=== PATIENT | male | born 1950 | race Caucasian/White ===

== ENCOUNTER 2020-01-04 13:42 | Outpatient (CLI) | payer MEDICARE, OTHER ==
[2020-01-04 14:28] LABS: ALBUMIN 4.3 g/dL (3.2-5.5); ALBUMIN/GLOBULIN RATIO 1.5 (1.0-2.2); BILIRUBIN,TOTAL 1.3 mg/dL (0.2-1.0); CALCIUM 10.3 mg/dL (8.5-10.3); CREATININE 1.4 mg/dL (0.6-1.2); TOTAL PROTEIN 7.1 g/dL (6.7-8.2)
== END 2020-01-04 13:43 | disposition home or self-care (01) ==
LOC: LAB 13:42
PROVIDERS: ATTEND Internal Medicine Hematology & Oncology
DX: C61 Malignant neoplasm of prostate (principal)
CPT/HCPCS: 36415; 80053

== ENCOUNTER 2020-01-29 14:03 | Outpatient (CLI) | payer MEDICARE, OTHER ==
[2020-01-29 14:27] LABS: ALBUMIN 4.6 g/dL (3.2-5.5); ALBUMIN/GLOBULIN RATIO 1.6 (1.0-2.2); BILIRUBIN,TOTAL 1.2 mg/dL (0.2-1.0); CREATININE 1.4 mg/dL (0.6-1.2); TOTAL PROTEIN 7.5 g/dL (6.7-8.2)
== END 2020-01-29 14:04 | disposition home or self-care (01) ==
LOC: LAB 14:03
PROVIDERS: ATTEND Internal Medicine Hematology & Oncology
DX: C61 Malignant neoplasm of prostate (principal)
CPT/HCPCS: 36415; 80053

== ENCOUNTER 2020-03-03 08:00 | Outpatient (CLI) | payer MEDICARE, OTHER ==
[2020-03-03 13:47] LABS: ALBUMIN 4.4 g/dL (3.2-5.5); ALBUMIN/GLOBULIN RATIO 1.6 (1.0-2.2); BILIRUBIN,TOTAL 0.9 mg/dL (0.2-1.0); CALCIUM 10.3 mg/dL (8.5-10.3); CREATININE 1.4 mg/dL (0.6-1.2); TOTAL PROTEIN 7.1 g/dL (6.7-8.2)
== END 2020-03-03 23:59 | disposition home or self-care (01) ==
LOC: LAB.R 08:00
PROVIDERS: ATTEND Internal Medicine Hematology & Oncology
DX: C61 Malignant neoplasm of prostate (principal)
CPT/HCPCS: 80053

== ENCOUNTER 2020-04-28 16:25 | Outpatient (CLI) | payer MEDICARE, OTHER | END 2020-04-28 16:26 | disposition home or self-care (01) | LOC: COV 16:25 | PROVIDERS: ATTEND Orthopaedic Surgery | DX: Z01.812 Encounter for preprocedural laboratory examination (principal); Z20.822 Contact with and (suspected) exposure to COVID-19 ==

== ENCOUNTER 2020-05-05 15:00 | Outpatient (CLI) | payer MEDICARE, OTHER ==
[2020-05-05 18:27] LABS: INR 1.6 (0.8-1.2); PT - PROTHROMBIN TIME 17.5 secs (9.9-12.6)
== END 2020-05-05 15:01 | disposition home or self-care (01) ==
LOC: LAB.N 15:00
PROVIDERS: ATTEND Family Medicine
DX: Z78.9 Other specified health status (principal); Z51.81 Encounter for therapeutic drug level monitoring; Z79.01 Long term (current) use of anticoagulants
CPT/HCPCS: 36415; 85610

== ENCOUNTER 2020-05-08 14:23 | Outpatient (CLI) | payer MEDICARE, OTHER | END 2020-05-08 14:24 | disposition home or self-care (01) | LOC: LAB 14:23 | DX: Z51.81 Encounter for therapeutic drug level monitoring (principal); Z78.9 Other specified health status; Z79.01 Long term (current) use of anticoagulants | CPT/HCPCS: 85610 ==

== ENCOUNTER 2020-05-12 14:22 | Outpatient (CLI) | payer MEDICARE, OTHER | END 2020-05-12 14:23 | disposition home or self-care (01) | LOC: LAB 14:22 | DX: Z78.9 Other specified health status (principal) | CPT/HCPCS: 85610 ==

== ENCOUNTER 2020-05-16 15:19 | Outpatient (CLI) | payer MEDICARE, OTHER | END 2020-05-16 15:20 | disposition home or self-care (01) | LOC: LAB 15:19 | DX: Z78.9 Other specified health status (principal); Z79.01 Long term (current) use of anticoagulants | CPT/HCPCS: 85610 ==

== ENCOUNTER 2020-05-19 14:17 | Outpatient (CLI) | payer MEDICARE, OTHER | END 2020-05-19 14:18 | disposition home or self-care (01) | LOC: LAB 14:17 | DX: Z78.9 Other specified health status (principal) | CPT/HCPCS: 85610 ==

== ENCOUNTER 2020-05-22 08:00 | Outpatient (CLI) | payer MEDICARE, OTHER | END 2020-05-22 23:59 | disposition home or self-care (01) | LOC: LAB 08:00 | DX: Z78.9 Other specified health status (principal) | CPT/HCPCS: 36415; 80053; 85610 ==

== ENCOUNTER 2020-05-26 14:16 | Outpatient (CLI) | payer MEDICARE, OTHER | END 2020-05-26 14:17 | disposition home or self-care (01) | LOC: LAB 14:16 | DX: Z78.9 Other specified health status (principal) | CPT/HCPCS: 85610 ==

== ENCOUNTER 2020-05-29 08:00 | Outpatient (CLI) | payer MEDICARE, OTHER | END 2020-05-29 23:59 | disposition home or self-care (01) | LOC: LAB 08:00 | DX: Z78.9 Other specified health status (principal) | CPT/HCPCS: 85610 ==

== ENCOUNTER 2020-10-31 15:06 | Outpatient (CLI) | payer MEDICARE, OTHER | END 2020-10-31 15:07 | disposition home or self-care (01) | LOC: COV 15:06 | PROVIDERS: ATTEND Internal Medicine Pulmonary Disease | DX: Z01.812 Encounter for preprocedural laboratory examination (principal); J44.9 Chronic obstructive pulmonary disease, unspecified; Z20.822 Contact with and (suspected) exposure to COVID-19 ==

== ENCOUNTER 2021-03-19 19:13 | Emergency (ER) | payer MEDICARE, OTHER ==
[2021-03-19 19:42] VITALS: BP 151/88
[2021-03-19 20:13] LABS: BASOPHILS # (AUTO) 0.1 10^3/uL (0.0-0.1); BASOPHILS % (AUTO) 0.8 %; EOSINOPHILS # (AUTO) 0.1 10^3/uL (0.0-0.7); EOSINOPHILS % (AUTO) 1.1 %; HCT - HEMATOCRIT 37.7 % (42.0-52.0); HGB - HEMOGLOBIN 12.8 g/dL (14.0-18.0); LYMPHOCYTES # (AUTO) 1.1 10^3/uL (1.5-3.5); LYMPHOCYTES % (AUTO) 15.1 %; MEAN CORPUSCULAR HEMOGLOBIN 31.6 pg (27.0-31.0); MEAN CORPUSCULAR VOLUME 93.1 fL (80.0-94.0); MEAN PLATELET VOLUME 10.8 fL (7.4-11.4); MONOCYTES # (AUTO) 0.6 10^3/uL (0.0-1.0); MONOCYTES % (AUTO) 8.5 %; NEUTROPHILS # (AUTO) 5.6 10^3/uL (1.5-6.6); NEUTROPHILS % (AUTO) 74.2 %; PLT - PLATELET COUNT 152 10^3/uL (130-450); RED BLOOD COUNT 4.05 10^6/uL (4.70-6.10); RED CELL DISTRIBUTION WIDTH 12.7 % (12.0-15.0); WHITE BLOOD COUNT 7.6 x10^3/uL (4.8-10.8)
[2021-03-19 20:26] LABS: ALBUMIN 4.2 g/dL (3.2-5.5); ALBUMIN/GLOBULIN RATIO 1.6 (1.0-2.2); BILIRUBIN,TOTAL 1.4 mg/dL (0.2-1.0); CREATININE 1.6 mg/dL (0.6-1.2); POTASSIUM 4.7 mmol/L (3.5-5.0); TOTAL PROTEIN 6.9 g/dL (6.7-8.2)
--- NOTE | 2021-03-19 22:17 | XRAY Report ---
PROCEDURE: Knee 3 View LT INDICATIONS: pain; ? effusion TECHNIQUE: 3 views of the left knee(s) were acquired. COMPARISON: None. FINDINGS: Bones: No fractures or dislocations. No suspicious bony lesions. Knee arthroplasty is present. Richard dware is intact. Soft tissues: Mild joint effusion. No suspicious soft tissue calcifications. IMPRESSION: Mild effusion. No visualized acute fracture or dislocation. However, occult injury canno t be excluded. Recommend short interval imaging follow-up in 7-10 days as clinically indicated for ad ditional evaluation. Reviewed by: Fang Bernstein MD on 03/19/2021 10:16 PM PST Approved by: Fang Bernstein MD on 03/19/2021 10:16 PM PST Station ID: [id number]
== END 2021-03-19 22:00 | disposition left against medical advice (07) ==
LOC: ED 19:13
DX: Z53.29 Procedure and treatment not carried out because of patient's decision for other reasons (principal)
CPT/HCPCS: 36415; 80053; 83605; 83690; 85025; 85651; 86140; 87040

== ENCOUNTER 2021-12-16 15:21 | Outpatient (CLI) | payer MEDICARE, OTHER ==
--- NOTE | 2021-12-16 20:11 | XRAY Report ---
PROCEDURE: Hand 3 View RT INDICATIONS: OA OF 1ST [facility] JOINT TECHNIQUE: 3 views of the hand acquired. COMPARISON: None. FINDINGS: Bones: No acute fractures or dislocations. No suspicious bony lesions. There is mild volar subluxa tion of the second and third metacarpophalangeal joints. Postsurgical changes are seen at the radial aspect of the third metacarpophalangeal joint severe joint space narrowing is seen at the first carpo metacarpal joint with subchondral sclerosis. Focal subchondral lucency is seen at the first metacarpa l base that may represent subchondral cystic changes or chronic osseous erosion. Severe degenerative changes are seen in the triscaphe joint. The first metacarpal phalangeal joint is mildly hyperextende d. There are mild scattered degenerative changes at the interphalangeal joints of the fingers. Soft tissues: No suspicious soft tissue calcifications. IMPRESSION: 1.Severe arthritic changes at the first carpometacarpal joint with juxta articular lucency is most li hayes related to primary osteoarthrosis, but an inflammatory arthritis is not entirely excluded. Sever e degenerative changes also seen at the triscaphe joint. 2.Mild volar subluxation of the second and third metacarpophalangeal joints. Mild hyperextension of t he first metacarpophalangeal joint is noted. Reviewed by: Magan Smith MD on 12/16/2021 8:10 PM PDT Approved by: Magan Smith MD on 12/16/2021 8:10 PM PDT Station ID: [id number]
== END 2021-12-16 15:22 | disposition home or self-care (01) ==
LOC: DI.N 15:21
PROVIDERS: ATTEND Family Medicine
DX: M18.11 Unilateral primary osteoarthritis of first carpometacarpal joint, right hand (principal); M19.031 Primary osteoarthritis, right wrist; S63.210A Subluxation of metacarpophalangeal joint of right index finger, initial encounter; S63.212A Subluxation of metacarpophalangeal joint of right middle finger, initial encounter

== ENCOUNTER 2021-12-17 16:32 | Outpatient (CLI) | payer MEDICARE, OTHER ==
--- NOTE | 2021-12-18 16:30 | XRAY Report ---
PROCEDURE: Knee 4 View RT INDICATIONS: CHRONIC PAIN OF RIGHT KNEE TECHNIQUE: 4 views of the right knee(s) were acquired. COMPARISON: None. FINDINGS: Bones: No fractures or dislocations. Mild to moderate medial femoral tibial compartment osteoarthri tic changes are seen with joint space narrowing, subchondral sclerosis and small marginal osteophyte formation. No patella subluxation. No suspicious bony lesions. Soft tissues: Moderate suprapatellar joint effusion is seen. No suspicious soft tissue calcificatio ns. IMPRESSION: Mild to moderate medial femoral tibial compartment osteoarthritis. No fracture or disloc ation. Moderate suprapatellar joint effusion. Reviewed by: Jose Alejandro Gallo MD on 12/18/2021 4:28 PM PDT Approved by: Jose Alejandro Gallo MD on 12/18/2021 4:28 PM PDT Station ID: [id number]
== END 2021-12-17 16:33 | disposition home or self-care (01) ==
LOC: DI 16:32
PROVIDERS: ATTEND Orthopaedic Surgery
DX: M17.11 Unilateral primary osteoarthritis, right knee (principal); M25.461 Effusion, right knee

== ENCOUNTER 2022-02-25 12:42 | Outpatient (CLI) | payer MEDICARE, OTHER ==
[2022-02-25 17:45] LABS: BASOPHILS # (AUTO) 0.1 10^3/uL (0.0-0.1); EOSINOPHILS # (AUTO) 0.1 10^3/uL (0.0-0.7); HCT - HEMATOCRIT 40.1 % (42.0-52.0); HGB - HEMOGLOBIN 13.2 g/dL (14.0-18.0); LYMPHOCYTES # (AUTO) 1.6 10^3/uL (1.5-3.5); LYMPHOCYTES % (AUTO) 32.5 %; MEAN CORPUSCULAR HEMOGLOBIN 30.3 pg (27.0-31.0); MEAN CORPUSCULAR HGB CONC 32.9 g/dL (32.0-36.0); MEAN PLATELET VOLUME 11.3 fL (7.4-11.4); MONOCYTES # (AUTO) 0.4 10^3/uL (0.0-1.0); MONOCYTES % (AUTO) 8.3 %; NEUTROPHILS # (AUTO) 2.8 10^3/uL (1.5-6.6); NEUTROPHILS % (AUTO) 56.2 %; PLT - PLATELET COUNT 156 10^3/uL (130-450); RED BLOOD COUNT 4.36 10^6/uL (4.70-6.10); RED CELL DISTRIBUTION WIDTH 12.8 % (12.0-15.0)
[2022-02-25 18:01] LABS: ALBUMIN 4.1 g/dL (3.2-5.5); ALBUMIN/GLOBULIN RATIO 1.3 (1.0-2.2); ALKALINE PHOSPHATASE 65 IU/L (42-121); ALT ALANINE AMINOTRANSFERASE 19 IU/L (10-60); AST ASPARTATE AMINOTRANSFERASE 22 IU/L (10-42); BILIRUBIN,TOTAL 0.9 mg/dL (0.2-1.0); BUN - BLOOD UREA NITROGEN 32 mg/dL (6-20); CALCIUM 10.1 mg/dL (8.5-10.3); CARBON DIOXIDE - CO2 26 mmol/L (21-32); CHLORIDE 106 mmol/L (101-111); CHOL/HDL RATIO 2.7 (<5.0); CHOLESTEROL 229 mg/dL; CREATININE 1.3 mg/dL (0.6-1.2); GFR - MDRD 54 (>89); GLUCOSE 111 mg/dL (70-100); HDL CHOLESTEROL 85 mg/dL; LDL CHOLESTEROL,CALCULATED 126 mg/dL; LDL/HDL RATIO 1.5 (<3.6); SODIUM 138 mmol/L (135-145); TOTAL PROTEIN 7.2 g/dL (6.7-8.2); TRIGLYCERIDES 90 mg/dL; VLDL CHOLESTEROL 18 mg/dL
[2022-02-25 18:10] LABS: THYROID STIMULATING HORMONE 1.3 uIU/mL (0.34-5.60)
[2022-02-25 20:30] LABS: ESTIMATED AVERAGE GLUCOSE 123 mg/dL (70-100); HEMOGLOBIN A1c% 5.9 % (4.27-6.07)
== END 2022-02-25 12:43 | disposition home or self-care (01) ==
LOC: LAB.N 12:42
PROVIDERS: ATTEND Family Medicine
DX: M17.11 Unilateral primary osteoarthritis, right knee (principal); G47.30 Sleep apnea, unspecified; D49.7 Neoplasm of unspecified behavior of endocrine glands and other parts of nervous system; R53.83 Other fatigue; R53.81 Other malaise; J45.909 Unspecified asthma, uncomplicated; F32.9 Major depressive disorder, single episode, unspecified; C61 Malignant neoplasm of prostate; R73.9 Hyperglycemia, unspecified
CPT/HCPCS: 36415; 80053; 80061; 83036; 83721; 84153; 84443; 85025

== ENCOUNTER 2022-10-16 14:57 | Outpatient (CLI) | payer MEDICARE, OTHER | END 2022-10-16 14:58 | disposition EMS.NT | LOC: EMS 14:57 | DX: M25.461 Effusion, right knee (principal); V13.4XXA Pedal cycle driver injured in collision with car, pick-up truck or van in traffic accident, initial encounter; Y92.414 Local residential or business street as the place of occurrence of the external cause ==

== ENCOUNTER 2022-11-23 13:44 | Outpatient (CLI) | payer MEDICARE, OTHER ==
--- NOTE | 2022-11-23 14:29 | Sleep Patient Instructions ---
Sleep Center Visit Summary - Patient Visit Information Reason for Visit: Initial consult for evaluation of sleep disordered breathing and other sleep issues. - Patient Instructions Instructions Attached: Sleep Clinic Visit, Sleep Study Additional Instructions: You will be completing a sleep study, either an in-lab polysomnography (PSG) or home sleep study (HST). You will follow-up in the sleep care office after the sleep study is completed to hear the results and talk about therapy, if needed. You will be called by our office staff to schedule this appointment, but you may contact us with any questions. - Clinic Information Contact: [facility] [address] [place] [address] [email or web address] T: [phone]
--- NOTE | 2022-11-23 14:38 | SLEEP CARE CONSULTATION ---
Information from patient questionnaire entered by Jorge Walker. I have reviewed and concur with the information entered by Jorge Walker. This document represents the service I personally performed and the decisions made by me, Aurna Hartley ARNP. History of Present Illness Service Date and Time: 11/23/2022 1344 Reason for Visit: New patient, Previously diagnosed sleep apnea (did not tolerate facial mask; has not used for 15 years) Chief Complaint: reports: Insomnia, Unrefreshed sleep, Fatigue, Frequent awakenings at night Date of Onset: 40YRS Usual bedtime: 1030PM-12AM Time it takes to fall asleep: 30MIN Snores at night: Yes Observed to quit breathing while asleep: Yes Sleeps alone due to snoring: Yes Number of times waking at night: 3-4 Reasons for waking at night: reports: Gasping for air, Pain, Bathroom Toss, Turn, or Twitch while sleeping: Yes Recalls having dreams: Yes Usually gets out of bed at: 730-8AM Feels refreshed in the morning: No Morning headache: No Sleepy or fatigued during the day: Yes Ever fallen asleep while driving: No Takes day naps: Yes (2 times a week for an hour) Dreams during day naps: No Prior sleep studies: Yes (DELIGHT 30 YRS AGO) Additional HPI information: I had the pleasure of seeing ANH MELGAR today regarding the possibility of him having a sleep disorder. His current complaints are fatigue, frequent night awakenings, insomnia and unrefreshed sleep. He was previously diagnosed with sleep apnea but could not tolerate the mask on his face. He was told he was severe. He has not used a CPAP for about 15 years. He was in for a spinal surgery last April and the nurse "pleaded" with him to get checked out because he was setting off all the respiratory alarms when sleeping. He states his fatigue level has "drastically increased" in the last 6 months to a year. He has prostate cancer and is on Lupron. One of the side effects can be fatigue. He talked to his PCP who put him through a lot of tests for fatigue. He uses Ambien to help him go to sleep. He is a light sleeper and if gets awoken he has a hard time falling back to sleep. - Parasomnia Symptoms Ever been unable to move upon waking from sleep: No Walks in sleep: No Talks in sleep: No Ever acted out dreams in sleep: No Ever felt weak in the knees when startled or emotional: No Bothered by creepy, crawly, restless sensations in legs: Yes Problems with memory or concentration: No Subjective Initial [place] Sleepiness Scale score: 6 (11/23/22) Past Medical History Past Medical History: reports: Claustrophobia, Arthritis, Anxiety, Asthma, Depression, Other (PROSTATE CANCER) Social History The patient's occupation is a RE. Patient is Single and lives in . Have you smoked in the past 12 months: No Alcohol use: Yes Alcohol amount and frequency: 1 DRINK X WEEKLY Caffeine use: Yes Caffeine amount and frequency: 2 CUPS AM Family History Family history of sleep disordered breathing: Yes Family Hx Sleep Apnea: Sibling: Snoring, Sleep apnea - Treated Allergies and Home Medications Known drug allergies: No Drug allergies reviewed: Yes Home medication list reviewed: Yes Allergy and home medication list: Allergies No Known Drug Allergies Allergy (Verified 11/22/22 10:17) Home Medications Medication Instructions Recorded Confirmed Last Taken Type Albuterol Sulfate See Rx Instructions .ROUTE .COMPLEX 11/23/22 11/23/22 Unknown History Alprazolam [Xanax] See Rx Instructions .ROUTE .COMPLEX 11/23/22 11/23/22 Unknown History Budesonide/Formoterol Fumarate See Rx Instructions .ROUTE .COMPLEX 11/23/22 11/23/22 Unknown History [Symbicort 160-4.5 Mcg Inhaler] FLUoxetine [PROzac] See Rx Instructions .ROUTE .COMPLEX 11/23/22 11/23/22 Unknown History Gabapentin [Neurontin] See Rx Instructions .ROUTE .COMPLEX 11/23/22 11/23/22 Unknown History Multivitamin See Rx Instructions .ROUTE .COMPLEX 11/23/22 11/23/22 Unknown History Musinex See Rx Instructions .ROUTE .COMPLEX 11/23/22 11/23/22 Unknown History Zolpidem [Ambien] See Rx Instructions .ROUTE .COMPLEX 11/23/22 11/23/22 Unknown History Review of Systems Weight gain over past 5 years: 10 Cardiovascular: denies: high blood pressure Respiratory: reports: shortness of breath, wheeze, chronic cough Gastrointestinal: denies: heartburn Urinary: reports: frequency Neurological: denies: headaches Psychiatric: reports: anxiety, depression, claustrophobia Ear/Nose/Throat: reports: tonsillectomy Endocrine: reports: too hot or cold, unexplained weakness Musculoskeletal: reports: joint pain, joint swelling Physical Exam Vital signs obtained and entered by: JORGE Newberry MA Blood Pressure: 154/76 (RIGHT) Cuff size: wrist Heart Rate: 61 O2 Saturation: 0 Height: 6 ft 1 in Weight: 210 lb 9.6 oz Body Mass Index: 27.8 BMI Classification: Overweight Neck circumference: 18 Mouth and throat: narrow oropharynx Soft palate: long Hard palate: normal Uvula: normal Uvula visualization: 25% Mallampati Class III Tongue: normal in size (geographic tongue) Tonsils: absent bilaterally Neck: normal w/o lymphadenopathy or thyromegaly Heart: regular rate and rhythm Lungs: clear bilaterally Impression and Plan 1. Suspected Obstructive Sleep Apnea-Hypopnea Syndrome, as previously diagnosed and as suggested by a history of loud and irregular snoring, observed cessation of breath while asleep, frequent awakening during the night and unrefreshed sleep. I recommend proceeding to polysomnography to confirm the diagnosis and to assess severity. If the patient has significant sleep disordered breathing, a manual CPAP titration study will also be performed to find the optimal treatment pressure. I informed the patient of what the sleep studies involve and after some discussion, obtained agreement to proceed. The pathophysiology of obstructive sleep apnea-hypopnea syndrome was discussed with the patient and health risks of cardiovascular and cerebrovascular disease if not treated. Risks of drowsy driving discussed in detail and patient advised to avoid long distance driving and to thread puller at the first sign of drowsiness. Patient agreed to plan. * Schedule polysomnography. * Avoid long distance driving or driving when feeling sleepy. * Avoid alcohol, sedative and muscle relaxant around bedtime. * Attempt to lose weight. * Review instructions provided by trained office staff on how to prepare for the sleep study. * Return for follow-up after sleep study completed. Counseling Topics: Weight loss health impact Plan: PSG/HST Visit Type: In Office Time Spent with Patient (minutes): 34 Provider Statement: I spent 100% of the Face to Face Visit with the patient with greater than 50% spent counseling the patient and coordination of care.
[2022-11-23 14:53] VITALS: BP 154/76; O2SAT 0
== END 2022-11-23 13:45 | disposition home or self-care (01) ==
LOC: SC 13:44
PROVIDERS: ATTEND Nurse Practitioner Family
DX: R06.81 Apnea, not elsewhere classified (principal); G47.8 Other sleep disorders; R06.83 Snoring
CPT/HCPCS: 99203; G0463; 99212

== ENCOUNTER 2022-12-28 21:32 | Outpatient (CLI) | payer MEDICARE, OTHER | END 2022-12-28 21:33 | disposition home or self-care (01) | LOC: SC 21:32 | PROVIDERS: ATTEND Nurse Practitioner Family | DX: G47.33 Obstructive sleep apnea (adult) (pediatric) (principal); G47.61 Periodic limb movement disorder; F32.A Depression, unspecified; E66.3 Overweight; Z68.27 Body mass index [BMI] 27.0-27.9, adult | CPT/HCPCS: 95810 ==

== ENCOUNTER 2023-05-31 11:07 | Outpatient (CLI) | payer MEDICARE, OTHER ==
[2023-05-31 11:27] LABS: BASOPHILS % (AUTO) 0.9 %; EOSINOPHILS # (AUTO) 0.1 10^3/uL (0.0-0.7); EOSINOPHILS % (AUTO) 2.2 %; HCT - HEMATOCRIT 40.1 % (42.0-52.0); HGB - HEMOGLOBIN 13.1 g/dL (14.0-18.0); LYMPHOCYTES # (AUTO) 1.5 10^3/uL (1.5-3.5); LYMPHOCYTES % (AUTO) 33.3 %; MEAN CORPUSCULAR HEMOGLOBIN 29.6 pg (27.0-31.0); MEAN CORPUSCULAR HGB CONC 32.7 g/dL (32.0-36.0); MEAN CORPUSCULAR VOLUME 90.7 fL (80.0-94.0); MEAN PLATELET VOLUME 10.4 fL (7.4-11.4); MONOCYTES # (AUTO) 0.4 10^3/uL (0.0-1.0); MONOCYTES % (AUTO) 8.7 %; NEUTROPHILS # (AUTO) 2.4 10^3/uL (1.5-6.6); NEUTROPHILS % (AUTO) 54.7 %; PLT - PLATELET COUNT 165 10^3/uL (130-450); RED BLOOD COUNT 4.42 10^6/uL (4.70-6.10); RED CELL DISTRIBUTION WIDTH 12.8 % (12.0-15.0); WHITE BLOOD COUNT 4.5 x10^3/uL (4.8-10.8)
[2023-05-31 11:42] LABS: CHOL/HDL RATIO 3.1 (<5.0); CHOLESTEROL 234 mg/dL; HDL CHOLESTEROL 75 mg/dL; LDL CHOLESTEROL,CALCULATED 136 mg/dL; LDL/HDL RATIO 1.8 (<3.6); TRIGLYCERIDES 113 mg/dL (48-352); VLDL CHOLESTEROL 23 mg/dL
[2023-05-31 11:43] LABS: ALBUMIN 4.2 g/dL (3.2-5.5); ALBUMIN/GLOBULIN RATIO 1.7 (1.0-2.2); BILIRUBIN,TOTAL 1.2 mg/dL (0.2-1.0); CALCIUM 10.6 mg/dL (8.5-10.3); CREATININE 1.4 mg/dL (0.6-1.3); POTASSIUM 4.4 mmol/L (3.5-4.5); TOTAL PROTEIN 6.7 g/dL (6.4-8.9)
[2023-05-31 11:55] LABS: THYROID STIMULATING HORMONE 2.29 uIU/mL (0.34-5.60)
[2023-05-31 12:29] LABS: ESTIMATED AVERAGE GLUCOSE 114 mg/dL (70-100); HEMOGLOBIN A1c% 5.6 % (4.27-6.07)
== END 2023-05-31 11:08 | disposition home or self-care (01) ==
LOC: LAB 11:07
PROVIDERS: ATTEND Internal Medicine Hematology & Oncology
DX: C61 Malignant neoplasm of prostate (principal); C79.51 Secondary malignant neoplasm of bone; R53.83 Other fatigue; J44.9 Chronic obstructive pulmonary disease, unspecified; B35.1 Tinea unguium; N18.9 Chronic kidney disease, unspecified; R73.9 Hyperglycemia, unspecified; R06.09 Other forms of dyspnea; F41.8 Other specified anxiety disorders; G47.30 Sleep apnea, unspecified
CPT/HCPCS: 36415; 80053; 80061; 83036; 83721; 84153; 84402; 84403; 84443; 85025

== ENCOUNTER 2023-08-05 13:45 | Emergency (ER) | payer MEDICARE, OTHER ==
[2023-08-05 14:20] LABS: BASOPHILS % (AUTO) 0.7 %; EOSINOPHILS # (AUTO) 0.1 10^3/uL (0.0-0.7); EOSINOPHILS % (AUTO) 1.2 %; HCT - HEMATOCRIT 43.2 % (42.0-52.0); LYMPHOCYTES # (AUTO) 1.7 10^3/uL (1.5-3.5); LYMPHOCYTES % (AUTO) 29.7 %; MEAN CORPUSCULAR HEMOGLOBIN 29.4 pg (27.0-31.0); MEAN CORPUSCULAR HGB CONC 32.4 g/dL (32.0-36.0); MEAN CORPUSCULAR VOLUME 90.8 fL (80.0-94.0); MEAN PLATELET VOLUME 10.8 fL (7.4-11.4); MONOCYTES # (AUTO) 0.6 10^3/uL (0.0-1.0); MONOCYTES % (AUTO) 10.4 %; NEUTROPHILS # (AUTO) 3.4 10^3/uL (1.5-6.6); NEUTROPHILS % (AUTO) 57.8 %; PLT - PLATELET COUNT 146 10^3/uL (130-450); RED BLOOD COUNT 4.76 10^6/uL (4.70-6.10); RED CELL DISTRIBUTION WIDTH 12.6 % (12.0-15.0); WHITE BLOOD COUNT 5.8 x10^3/uL (4.8-10.8)
[2023-08-05 14:34] LABS: ALBUMIN 4.3 g/dL (3.2-5.5); ALBUMIN/GLOBULIN RATIO 1.5 (1.0-2.2); CALCIUM 10.6 mg/dL (8.5-10.3); CREATININE 1.7 mg/dL (0.6-1.3); POTASSIUM 4.3 mmol/L (3.5-4.5); TOTAL PROTEIN 7.1 g/dL (6.4-8.9)
[2023-08-05 14:46] LABS: TROPONIN I HIGH SENSITIVITY 25.5 ng/L (2.3-19.7)
--- NOTE | 2023-08-05 14:47 | ED Physician Documentation ---
History of Present Illness - Stated complaint Stated Complaint: COVID +, LOW BLOOD PRESSURE - Chief complaint Chief Complaint: Neuro - Additonal information Additional information: 73-year-old male with history of prostate cancer currently in remission, osteoarthritis, anxiety presents emergency department for episodes of dizziness That has caused patient to have syncopal episode x 2 at home. Patient also was tested positive for COVID about 5 days ago and says that at home he has been noticing his pulse ox desatting to low 90s to 89%. Unsure when last time he had any feversPatient also reports that yesterday during the fall he hurt his left hip. Tenderness with palpation and ambulation PD PAST MEDICAL HISTORY - Past Medical History Past Medical History: Yes Respiratory: Asthma Psych: Anxiety Musculoskeletal: Osteoarthritis Other Past Medical History: prostate cancer - Past Surgical History Past Surgical History: Yes Ortho: Knee replacement, Carpal Tunnel surgery - Present Medications Home Medications: Ambulatory Orders Medication Instructions Recorded Confirmed Albuterol Sulfate See Rx Instructions .ROUTE .COMPLEX 11/23/22 11/23/22 Alprazolam [Xanax] See Rx Instructions .ROUTE .COMPLEX 11/23/22 11/23/22 Budesonide/Formoterol Fumarate See Rx Instructions .ROUTE .COMPLEX 11/23/22 11/23/22 [Symbicort 160-4.5 Mcg Inhaler] FLUoxetine [PROzac] See Rx Instructions .ROUTE .COMPLEX 11/23/22 11/23/22 Gabapentin [Neurontin] See Rx Instructions .ROUTE .COMPLEX 11/23/22 11/23/22 Multivitamin See Rx Instructions .ROUTE .COMPLEX 11/23/22 11/23/22 Musinex See Rx Instructions .ROUTE .COMPLEX 11/23/22 11/23/22 Zolpidem [Ambien] See Rx Instructions .ROUTE .COMPLEX 11/23/22 11/23/22 - Allergies Allergies/Adverse Reactions: Allergies Allergy/AdvReac Type Severity Reaction Status Date / Time No Known Drug Allergies Allergy Verified 11/23/22 13:49 - Social History Does the pt smoke?: No Smoking Status: Never smoker Does the pt drink ETOH?: Yes Does the pt have substance abuse?: No PD ED PE NORMAL - Vitals Vital signs reviewed: Yes - General General: Alert and oriented X 3, No acute distress, Well developed/nourished - HEENT HEENT: Atraumatic, PERRL - Cardiac Cardiac: RRR, No murmur, No gallop, Strong equal pulses - Respiratory Respiratory: No respiratory distress, Clear bilaterally - Abdomen Abdomen: Normal bowel sounds, Soft, Non tender, No organomegaly - Back Back: No CVA TTP, No spinal TTP - Derm Derm: Normal color, Warm and dry, No rash - Extremities Extremities: No deformity, No tenderness to palpate, Normal ROM s pain, No edema - Neuro Neuro: Alert and oriented X 3, triage specialist 2-12 intact, No motor deficit, No sensory deficit, Normal speech Eye Opening: Spontaneous Motor: Obeys Commands Verbal: Oriented GCS Score: 15 - Psych Psych: Normal mood Results - Vitals Vitals: Vital Signs - 24 hr 08/05/23 08/05/23 08/05/23 13:50 16:00 16:18 Temperature 35.9 C L Heart Rate 97 64 Heart Rate [ 59 L Sitting] Heart Rate [ 64 Standing] Heart Rate [ 58 L Supine] Respiratory 18 23 Rate Blood Pressure 107/64 125/76 Blood Pressure 133/72 H [Sitting] Blood Pressure 125/76 [Standing] Blood Pressure 138/73 H [Supine] O2 Saturation 98 100 08/05/23 08/05/23 18:00 20:15 Temperature Heart Rate 75 70 Heart Rate [ Sitting] Heart Rate [ Standing] Heart Rate [ Supine] Respiratory 20 18 Rate Blood Pressure 105/87 H 105/87 H Blood Pressure [Sitting] Blood Pressure [Standing] Blood Pressure [Supine] O2 Saturation 97 97 Oxygen O2 Source Room air - EKG (time done) 1404 EKG releavant findings:: EKG personally interpreted by author of this note. Relevant findings are: Rate: Rate (enter#) (67) Rhythm: NSR [place]: Normal Intervals: Normal [place] QRS: Normal Ischemia: Normal ST segments Other comments: Other comments (LVH) Computer interpretation: Agree with computer - Labs Labs: Laboratory Tests 08/05/23 08/05/23 08/05/23 14:13 14:13 16:29 WBC 5.8 RBC 4.76 Hgb 14.0 Hct 43.2 MCV 90.8 MCH 29.4 MCHC 32.4 RDW 12.6 Plt Count 146 MPV 10.8 Neut # (Auto) 3.4 Lymph # (Auto) 1.7 [place] # (Auto) 0.6 Eos # (Auto) 0.1 Baso # (Auto) 0.0 Absolute Nucleated RBC 0.00 Nucleated RBC % 0.0 Sodium 139 Potassium 4.3 Chloride 105 Carbon Dioxide 28 Anion Gap 6.0 BUN 31 H Creatinine 1.7 H Estimated GFR (MDRD) 40 L Glucose 127 H Calcium 10.6 H Total Bilirubin 1.0 AST 17 ALT 14 Alkaline Phosphatase 66 Troponin I High Sens 25.5 H* 23.8 H* Total Protein 7.1 Albumin 4.3 Globulin 2.8 Albumin/Globulin Ratio 1.5 Lipase 21 - Rads (name of study) . Hip with pelvis left Relevant Findings:: Final report received, EMP independent interpretation of test, Other (No acute bony abnormalities or findings) CT chest angio Relevant Findings:: Final report received, EMP independent interpretation of test, Other (No pulmonary emboli no other acute abnormality seen in the chest. Small focus of atelectasis mild cardiomegaly) PD Medical Decision Making - ED course ED course: 73-year-old male here to the emergency department recently tested COVID-positive at home couple days ago has been having episodes of dizziness with syncope. Labs are complete for further evaluation initial troponin was slightly elevated at 25.5 after patient received IV fluids trended down to 23.8. He has no chest pain or shortness of breath. EKG does not show any ST elevation so I have a low suspicion of this being related to acute coronary syndrome. BUN elevated at 31, creatinine 1.7, GFR 40 patient says he has not been drinking very much fluids at home he was given a liter of IV fluids here in the emergency department no leukocytosis no anemia. For further evaluation of patient's hypoxia that he was experiencing at home and his dizziness I went ahead and did a CT angio for further evaluation no pulmonary emboli was visualized he did have a small focal area of atelectasis at the medial left lung base this appears chronic although we did recommend that he repeat a chest CT in 3 months for further evaluation. He was also found to have mild cardiomegaly which for the patient this is new information for him so he was also told to follow with his primary care provider about this and further evaluation and workup of this. He had no episodes of syncope while he was here he did not have orthostatic hypotension at this point in time patient is safe for discharge he says that he is feeling significantly better after receiving IV fluids return precautions given and it was reiterated the importance of following up with his primary care provider for further evaluation of the findings seen on CT. All questions answered patient safe for discharge. Departure - Departure Disposition: 01 Home, Self Care Clinical Impression: Cardiomegaly, COVID-19, Dehydration Instructions: Dizziness Balance Probs Fainting Comments: Thank you for trusting us with your care. We have completed labs a CT angio of your chest and we are not seeing any obvious reasons as to why you are feeling this dizziness with syncope. Your x-ray on your hip was normal your CT did show some mild cardiomegaly and atelectasis again I want you to follow-up with your primary care provider to go over these results please come back in if symptoms worsen or any new symptoms occur. Wishing a speedy recovery. PT NAME: ANH MELGAR MR#: [id number] REG ER/ED AGE: 73 CI DT/TM: 08/05/23 PCP: Rohit Morris MD - Coup : 1950 ATT: SEX: M ORD: Irasema Padgett [facility] EXAM: [id number] CT/CHTANG ([id number]) PROCEDURE: Angio Chest INDICATIONS: r/o PE CONTRAST: 80ml omni 300 TECHNIQUE: After the administration of intravenous contrast, 2 mm axial images were acquired from the pulmonary apices to the posterior costophrenic angles during the arterial phase. In addition, 1 mm lung kernel and 5 mm soft tissue kernel reconstructions were performed. 3-dimensional coronal oblique maximum intensity projection (MIP) reformats, 8 mm axial MIP, and 5 mm coronal and sagittal MPR reformats were then performed through the thorax. For radiation dose reduction, the following was used: automated exposure control, adjustment of mA and/or kV according to patient size. COMPARISON: None. FINDINGS: Image quality: Excellent. Reporting delay due to acquired images initially being unavailable for review. Large vessels: No filling defects within the opacified pulmonary arteries, accounting for motion and contrast timing. No evidence of acute aortic syndrome or aortic aneurysm. Lungs and pleura: Small chronic appearing dense consolidation versus atelectasis at the medial right lung base with internal calcifications. No pleural effusions. No pneumothorax. No suspicious pulmonary nodules which require follow up. Mediastinum: Heart size is mildly enlarged. No pericardial effusion. No large vessel abnormality. No mediastinal adenopathy by size criteria. Probable calcified lymph node in the lower paraesophageal region. Chest wall and lower neck: Thyroid is unremarkable. No axillary or supraclavicular adenopathy by size. Bones: No aggressive osseous abnormality. Posterior fixation hardware seen at the T12-L1 level. Upper Abdomen: Unremarkable. IMPRESSION: 1.No pulmonary embolus. No acute abnormality is seen in the chest. 2.Small focus of atelectasis or scarring at the medial left lung base appears chronic. However, recommend correlation with any prior exams available versus follow-up chest CT in 3 months to demonstrate stability. 3.Mild cardiomegaly. Reviewed by: Magan Smith MD on 08/05/2023 7:39 PM PDT Forms: PCP List Discharge Date/Time: 08/05/23 20:16
--- NOTE | 2023-08-05 14:51 | XRAY Report ---
PROCEDURE: Hip w/Pelvis 2-3V LT INDICATIONS: Lt hip pain post GLF TECHNIQUE: 2 views of the hip were acquired. COMPARISON: None. FINDINGS: Bones: No fractures or dislocations. Mild degenerative changes of the bilateral hips. No suspicious bony lesions. Soft tissues: No suspicious soft tissue calcifications or masses. IMPRESSION: No acute bony abnormality. Reviewed by: Vicente Benavidez MD on 08/05/2023 2:50 PM PDT Approved by: Vicente Benavidez MD on 08/05/2023 2:50 PM PDT Station ID: [id number]
[2023-08-05] MEDS: SODIUM CHLORIDE 0.9% 1,000 ML IV ONE (15:36)
[2023-08-05] MEDS ORDERED: iohexoL-300 100 ML VIAL ONE (16:17)
[2023-08-05] MEDS: iohexoL-300 100 ML VIAL IVP ONE (18:40)
[2023-08-05 18:53] VITALS: BP 105/87; O2SAT 97
--- NOTE | 2023-08-05 19:40 | CT Report ---
PROCEDURE: Angio Chest INDICATIONS: r/o PE CONTRAST: 80ml omni 300 TECHNIQUE: After the administration of intravenous contrast, 2 mm axial images were acquired from the pulmonary apices to the posterior costophrenic angles during the arterial phase. In addition, 1 mm lung kernel and 5 mm soft tissue kernel reconstructions were performed. 3-dimensional coronal oblique maximum int ensity projection (MIP) reformats, 8 mm axial MIP, and 5 mm coronal and sagittal MPR reformats were t hen performed through the thorax. For radiation dose reduction, the following was used: automated exp osure control, adjustment of mA and/or kV according to patient size. COMPARISON: None. FINDINGS: Image quality: Excellent. Reporting delay due to acquired images initially being unavailable for re view. Large vessels: No filling defects within the opacified pulmonary arteries, accounting for motion and contrast timing. No evidence of acute aortic syndrome or aortic aneurysm. Lungs and pleura: Small chronic appearing dense consolidation versus atelectasis at the medial right lung base with internal calcifications. No pleural effusions. No pneumothorax. No suspicious pulmona ry nodules which require follow up. Mediastinum: Heart size is mildly enlarged. No pericardial effusion. No large vessel abnormality. No mediastinal adenopathy by size criteria. Probable calcified lymph node in the lower paraesophageal r egion. Chest wall and lower neck: Thyroid is unremarkable. No axillary or supraclavicular adenopathy by size . Bones: No aggressive osseous abnormality. Posterior fixation hardware seen at the T12-L1 level. Upper Abdomen: Unremarkable. IMPRESSION: 1.No pulmonary embolus. No acute abnormality is seen in the chest. 2.Small focus of atelectasis or scarring at the medial left lung base appears chronic. However, recom mend correlation with any prior exams available versus follow-up chest CT in 3 months to demonstrate stability. 3.Mild cardiomegaly. Reviewed by: Magan Smith MD on 08/05/2023 7:39 PM PDT Approved by: Magan Smith MD on 08/05/2023 7:39 PM PDT Station ID: [id number]
== END 2023-08-05 20:16 | disposition home or self-care (01) ==
LOC: ED 13:45
DX: R42 Dizziness and giddiness (principal); I51.7 Cardiomegaly; M25.552 Pain in left hip; W19.XXXA Unspecified fall, initial encounter; U07.1 COVID-19; R79.89 Other specified abnormal findings of blood chemistry; R63.8 Other symptoms and signs concerning food and fluid intake; E86.0 Dehydration; J98.11 Atelectasis
CPT/HCPCS: 36415; 71275; 73502; 80053; 83690; 84484; 85025; 93005; 96360; 99284; Q9967

== ENCOUNTER 2023-09-08 15:18 | Outpatient (CLI) | payer MEDICARE, OTHER ==
[2023-09-08 15:37] LABS: BASOPHILS # (AUTO) 0.1 10^3/uL (0.0-0.1); BASOPHILS % (AUTO) 0.7 %; EOSINOPHILS # (AUTO) 0.1 10^3/uL (0.0-0.7); HCT - HEMATOCRIT 40.7 % (42.0-52.0); HGB - HEMOGLOBIN 13.1 g/dL (14.0-18.0); LYMPHOCYTES # (AUTO) 2.2 10^3/uL (1.5-3.5); MEAN CORPUSCULAR HEMOGLOBIN 29.6 pg (27.0-31.0); MEAN CORPUSCULAR HGB CONC 32.2 g/dL (32.0-36.0); MEAN CORPUSCULAR VOLUME 91.9 fL (80.0-94.0); MEAN PLATELET VOLUME 10.9 fL (7.4-11.4); MONOCYTES # (AUTO) 0.6 10^3/uL (0.0-1.0); MONOCYTES % (AUTO) 8.2 %; PLT - PLATELET COUNT 169 10^3/uL (130-450); RED BLOOD COUNT 4.43 10^6/uL (4.70-6.10); RED CELL DISTRIBUTION WIDTH 12.7 % (12.0-15.0); WHITE BLOOD COUNT 6.9 x10^3/uL (4.8-10.8)
[2023-09-08 15:43] LABS: ALBUMIN 4.5 g/dL (3.2-5.5); CALCIUM 10.7 mg/dL (8.5-10.3)
[2023-09-08 15:45] LABS: ALBUMIN/GLOBULIN RATIO 1.7 (1.0-2.2); CREATININE 1.7 mg/dL (0.6-1.3); TOTAL PROTEIN 7.2 g/dL (6.4-8.9)
== END 2023-09-08 15:19 | disposition home or self-care (01) ==
LOC: LAB 15:18
PROVIDERS: ATTEND Internal Medicine Hematology & Oncology
DX: C61 Malignant neoplasm of prostate (principal); C79.51 Secondary malignant neoplasm of bone
CPT/HCPCS: 36415; 80053; 84153; 84402; 84403; 85025